=== PATIENT | male | born 1930 | race Caucasian/White ===

== ENCOUNTER 2017-03-24 05:48 | Day surgery (SDC) | payer MEDICARE ==
[2017-03-24 06:34] VITALS: BP 139/88; PULSE 65; RESP 16; TEMP 97.3; O2SAT 94
[2017-03-24] MEDS ORDERED: LIDOCAINE HCL 1% 20 ML VIAL SUBCUT ONE (06:44)
[2017-03-24] MEDS ORDERED: FENTANYL 100 MCG/2 ML VIAL IV PRN (06:46)
[2017-03-24] MEDS ORDERED: ONDANSETRON HCL 4 MG/2 ML VIAL IV PRN (06:46)
[2017-03-24] MEDS ORDERED: LACTATED RINGERS 1,000 ML IV SCH ×2 (07:00)
[2017-03-24] MEDS ORDERED: MIDAZOLAM HCL 2 MG/2 ML VIAL ONE (07:02)
[2017-03-24] MEDS ORDERED: KETAMINE HCL 500 MG/10 ML VIAL ONE (07:03)
[2017-03-24] MEDS ORDERED: SUCCINYLCHOLINE CHLORIDE 200 MG/10 ML VIAL ONE (07:12)
[2017-03-24] MEDS ORDERED: BUPIVACAINE/EPI 0.25% 1 VIAL VIAL ONE (07:13)
[2017-03-24] MEDS ORDERED: BUPIVACAINE HCL/PF 0.25% 10 ML VIAL INJ ONE (07:26)
--- NOTE | 2017-03-26 15:12 | PREOPERATIVE H&P ---
History of Present Illness (Lloyd Cole M.D.; 03/15/2017 2:34 PM) The patient is a 86 year old male who presents for evaluation of a hernia. The onset of the hernia has been acute and has been occurring in a persistent pattern for 5 days. The course has been constant. The patient denies discomfort from the hernia. There is 1 hernia. The hernia is described as being 3 centimeters in diameter. The hernia is located in the groin. The hernia is worsened by straining. The hernia is reduced by lying down. There has been no associated abdominal pain, colicky pain, constipation, diarrhea or dysuria needs to self cath. already. There have been no previous diagnostic tests. This hernia has never been treated in the past. Allergies (Latrice Mcmahon; 03/15/2017 1:28 PM) Penicillins (Amoxicillin, Augmentin, Unasyn...) Social History (Latrice Mcmahon; 03/15/2017 1:29 PM) Vehicle Driving Yes. Tobacco Use Former smoker. Quit in 2011. Alcohol Use Drinks beer. daily Medication History (Latrice Mcmahon; 03/15/2017 1:30 PM) Atorvastatin Calcium (40MG Tablet, 1 (one) Tablet Oral at bedtime, Taken starting 09/28/2016) Active. Metoprolol Tartrate (25MG Tablet, 1/2 Tablet Oral two times daily, Taken starting 09/28/2016) Active. Ocuvite Adult Formula (Oral daily) Active. Multi Vitamin Mens (once Oral daily) Active. Review of Systems (Lloyd Cole M.D.; 03/15/2017 2:37 PM) General Present- Feeling well. Not Present- Night Sweats, Weight Gain and Weight Loss. Skin Not Present- Bruising, Jaundice and Skin Problems. Respiratory Not Present- Asthma, Cough, Lung Problems, Shortness of Breath and Snoring. Cardiovascular Present- Heart Problems (previous NV and CABG). Not Present- Chest Pain, Decreased Exercise Tolerance and Edema. Gastrointestinal Not Present- Abdominal Mass, Abdominal Pain, Bloating, Constipation, Diarrhea, Difficulty Swallowing, GI Problems, Heartburn, Nausea, Rectal Bleeding, Vomiting and Vomiting Blood. Male Genitourinary Present- Dysuria (Needs to self cath. himself), Kidney Problems (only one functioning kidney.) and Prostatitis. Musculoskeletal Present- Joint Pain and Joint Stiffness. Not Present- Back Pain. Neurological Not Present- Loss of Consciousness, Neurological Problems, Seizures , Stroke, Syncope, Tremor and Weakness. Endocrine Not Present- Diabetes and Thyroid Problems. Hematology Present- Anemia (monoclonal gamopathy.). Not Present- Abnormal Bleeding, DVT, Easy Bruising and Epistaxis. Vitals (Latrice Mcmahon; 03/15/2017 1:34 PM) 03/15/2017 1:31 PM Weight: 133 lb Height: 66in Body Surface Area: 1.68 m Body Mass Index: 21.47 kg/m Pulse: 64 (Regular) Resp.: 16 (Unlabored) BP: 134/80 (Sitting, Left Arm, Standard) Physical Exam (Lloyd Cole M.D.; 03/15/2017 2:42 PM) General Mental Status-Alert. General Appearance-Not Anxious. Chest and Lung Exam Chest and lung exam reveals -Clear. Cardiovascular Cardiovascular examination reveals -RRR, No murmurs present. Abdomen Inspection Inspection of the abdomen reveals - Soft and Non-tender. Male Genitourinary Evaluation of genitourinary system reveals-Hernias(Appears to be a direct left inguinal hernia.). Foreskin-Uncircumcised. Testes - Bilateral-Normal. 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 It is minimally symptomatic but he is concerned it came on so quickly. I agree with repair. He does not want mesh for his repair. I told him my opinion was that the commercials he sees are for law suits and don't represent the true incidence of these complicatiions. He would still like to have this done without mesh which I agreed to. I emphasized the higher recurrance rate. He was okay with this. Medical Decision Making (Lloyd Cole M.D.; 03/15/2017 2:51 PM) Amount/complexity of data to be reviewed: - Order and/or review of lab test(s) - Independent visualization of lab test - Decision to obtain old medical records - Review and summarization of old records Signed by Lloyd Cole M.D. (03/15/2017 2:52 PM) SHAHEED
== END 2017-03-24 08:55 | disposition home or self-care (01) ==
LOC: SDS 05:48
PROVIDERS: ATTEND Surgery
DX: Z53.09 Procedure and treatment not carried out because of other contraindication (principal); K40.90 Unilateral inguinal hernia, without obstruction or gangrene, not specified as recurrent; K21.9 Gastro-esophageal reflux disease without esophagitis; I25.10 Atherosclerotic heart disease of native coronary artery without angina pectoris; E78.5 Hyperlipidemia, unspecified; N18.9 Chronic kidney disease, unspecified; Z79.899 Other long term (current) drug therapy
CPT/HCPCS: 93005; 99214; J2250; J3010

== ENCOUNTER 2017-04-14 08:39 | Day surgery (SDC) | payer MEDICARE ==
[~2017-04-14 08:39] MED LIST: ACETAMINOPHEN 1,000 MG/100 ML VIAL IV SCH; FAMOTIDINE IN SALINE, ISO-OSM 20 MG/50 ML PIGGYBACK IV SCH; LIDOCAINE HCL 1% 20 ML VIAL SUBCUT PRN
[2017-04-14] MEDS ORDERED: LACTATED RINGERS 1,000 ML IV SCH ×5 (09:00→11:00)
[2017-04-14] MEDS ORDERED: NORFLURANE/HFC 245FA 1 APPLIC CAN TOPICAL ONE (09:22)
[2017-04-14] MEDS ORDERED: BUPIVACAINE HCL/PF 0.25% 10 ML VIAL INJ ONE (10:06)
[2017-04-14] MEDS ORDERED: ETOMIDATE 40 MG/20 ML VIAL IV ONE (10:10)
[2017-04-14] MEDS ORDERED: FENTANYL 100 MCG/2 ML VIAL ONE (10:10)
[2017-04-14] MEDS ORDERED: MORPHINE SULFATE 10 MG/ML SYR IV PRN ×2 (10:36→10:38)
[2017-04-14] MEDS ORDERED: FENTANYL 100 MCG/2 ML VIAL IV PRN ×2 (10:36→10:38)
[2017-04-14] MEDS ORDERED: LIDOCAINE HCL 1% 20 ML VIAL SUBCUT PRN (10:38)
[2017-04-14] MEDS ORDERED: FAMOTIDINE IN SALINE, ISO-OSM 20 MG/50 ML PIGGYBACK IV SCH (10:38)
[2017-04-14] MEDS ORDERED: ACETAMINOPHEN 1,000 MG/100 ML VIAL IV SCH (10:38)
[2017-04-14] MEDS ORDERED: HEMOSTATIC MATRIX 5 ML SYR MISC ONE (11:08)
[2017-04-14 11:33] VITALS: TEMP 97
--- NOTE | 2017-04-14 11:34 | PROCEDURE NOTE: Gen Surgery ---
General Surgery Procedure Note - Date of Encounter Date of Encounter: 04/14/17 - Brief Operative Note (1) Inguinal hernia of left side without obstruction or gangrene Date of procedure: 04/14/17 Pre-Op Diagnosis: inguinal hernia Post-op diagnosis: same Procedure: Yamileth type hernia repair. Physician: LUCIA POP Estimated Blood Loss: 30 Pathology: sent X-ray taken: No Sponge and instrument counts: correct Condition: stable Disposition: same day Narrative: Pt. with an indirect left inguinal hernia repaired in a Yamileth fashion. Pt. requested that no mesh be used. Ileo inguinal nerve sacrificed.
[2017-04-14 12:05] VITALS: PULSE 55
[2017-04-14 12:15] VITALS: BP 151/87; RESP 14; O2SAT 92
--- NOTE | 2017-04-14 14:28 | OPERATIVE REPORT ---
DATE OF SURGERY: 04/14/17 SURGEON: Lloyd Cole MD ANESTHESIA: Local with IV sedation by Talisha Caraballo CRNA. PREOPERATIVE DIAGNOSIS: Left inguinal hernia. POSTOPERATIVE DIAGNOSIS: Indirect left inguinal hernia with cord lipoma. PROCEDURE PERFORMED: Tissue repair of left inguinal hernia. FINDINGS: The patient had a large cord lipoma which was excised. He had a moderate sized indirect hernia sac. The sac did bulge up the inferior epigastric vessels. The sac was opened and there was no sliding component to the hernia. The sac was not excised and reduced. The patient had requested no mesh be used, so a Coopers ligament type repair was done. SUMMARY: The patient was taken to the operating room and placed in the supine position. His left inguinal region was shaved and then prepped with a ChloraPrep solution. Time out was called and the correct patient, correct preoperative medications and correct procedure were verified. Once 3 minutes time had elapsed for the prep to dry, the area was draped. A 6-cm incision was then marked out. Local in the form of 0.25% Marcaine without epinephrine was infiltrated and the skin was sharply incised. Deeper dissection was done with the cautery. Dissection was carried down to the external oblique aponeurosis. The external oblique aponeurosis was opened up through the external ring. The inferior and superior flaps of the external oblique were then grasped and the ilioinguinal nerve was sacrificed. The cord was then circumferentially controlled near the pubic tubercle. The indirect sac was dissected free from the cord and opened. It was confirmed there was no sliding component so the sac was sewn with 3-0 Vicryl and reduced. The cord lipoma was dissected free and clamped at the base and amputated. It was over sewn with a 3-0 Vicryl. Next a relaxing incision was made in the internal oblique above the area of the pubic tubercle. The internal oblique was initially sewn to the Coopers ligament and then near the iliac vein transitioned to the inguinal ligament. A single suture was placed laterally to the conjoint tendon to the inguinal ligament. This gave a tight closure on the cord the size of my small finger. Hemostasis was then checked and areas of bleeding were controlled with a cautery. FloSeal was placed in the region of the repair, and then the external oblique aponeurosis was closed with running 3-0 Vicryl. Sub.q was closed with interrupted 3-0 Vicryl and the skin was closed with running subcuticular 4-0 Monocryl. Steri-Strips were applied, anesthesia was reversed and the patient was taken from the operating room to the recovery room. SHAHEED
--- NOTE | 2017-04-27 17:28 | PREOPERATIVE H&P ---
History of Present Illness (Lloyd Cole M.D.; 03/15/2017 2:34 PM) The patient is a 86 year old male who presents for evaluation of a hernia. The onset of the hernia has been acute and has been occurring in a persistent pattern for 5 days . The course has been constant . The patient denies discomfort from the hernia . There is/are 1 hernia . The hernia is described as being 3 centimeter(s) in diameter. The hernia is located in the groin . The hernia is worsened by straining . The hernia is reduced by lying down . There has been no associated abdominal pain, colicky pain, constipation, diarrhea or dysuria (needs to self cath. already.) . There have been no previous diagnostic tests . This hernia has never been treated in the past . Allergies (Latrice Mcmahon; 03/15/2017 1:28 PM) Penicillins (Amoxicillin, Augmentin, Unasyn...) Social History (Latrice Mcmahon; 03/15/2017 1:29 PM) Vehicle Driving Yes. Tobacco Use Former smoker. Quit in 2011. Alcohol Use Drinks beer. daily Medication History (Latrice Mcmahon; 03/15/2017 1:30 PM) Atorvastatin Calcium (40MG Tablet, 1 (one) Tablet Oral at bedtime, Taken starting 09/28/2016) Active. Metoprolol Tartrate (25MG Tablet, 1/2 Tablet Oral two times daily, Taken starting 09/28/2016) Active. Ocuvite Adult Formula (Oral daily) Active. Multi Vitamin Mens (once Oral daily) Active. Review of Systems (Lloyd Cole M.D.; 03/15/2017 2:37 PM) General Present- Feeling well. Not Present- Night Sweats, Weight Gain and Weight Loss. Skin Not Present- Bruising, Jaundice and Skin Problems. Respiratory Not Present- Asthma, Cough, Lung Problems, Shortness of Breath and Snoring. Cardiovascular Present- Heart Problems (previous [place] and CABG). Not Present- Chest Pain, Decreased Exercise Tolerance and Edema. Gastrointestinal Not Present- Abdominal Mass, Abdominal Pain, Bloating, Constipation, Diarrhea, Difficulty Swallowing, GI Problems, Heartburn, Nausea, Rectal Bleeding, Vomiting and Vomiting Blood. Male Genitourinary Present- Dysuria (Needs to self cath. himself), Kidney Problems (only one functioning kidney.) and Prostatitis. Musculoskeletal Present- Joint Pain and Joint Stiffness. Not Present- Back Pain. Neurological Not Present- Loss of Consciousness, Neurological Problems, Seizures , Stroke, Syncope, Tremor and Weakness. Endocrine Not Present- Diabetes and Thyroid Problems. Hematology Present- Anemia (monoclonal gamopathy.). Not Present- Abnormal Bleeding, DVT, Easy Bruising and Epistaxis. Vitals (Latrice Mcmahon; 03/15/2017 1:34 PM) 03/15/2017 1:31 PM Weight: 133 lb Height: 66in Body Surface Area: 1.68 m Body Mass Index: 21.47 kg/m Pulse: 64 (Regular) Resp.: 16 (Unlabored) BP: 134/80 (Sitting, Left Arm, Standard) Physical Exam (Lloyd Cole M.D.; 03/15/2017 2:42 PM) General Mental Status-Alert. General Appearance-Not Anxious. Chest and Lung Exam Chest and lung exam reveals -Clear. Cardiovascular Cardiovascular examination reveals -RRR, No murmurs present. Abdomen Inspection Inspection of the abdomen reveals - Soft and Non-tender. Male Genitourinary Evaluation of genitourinary system reveals-Hernias(Appears to be a direct left inguinal hernia.). Foreskin-Uncircumcised. Testes - Bilateral-Normal. 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 It is minimally symptomatic but he is concerned it came on so quickly. I agree with repair. He does not want mesh for his repair. I told him my opinion was that the commercials he sees are for law suits and don't represent the true incidence of these complicatiions. He would still like to have this done without mesh which I agreed to. I emphasized the higher recurrance rate. He was okay with this. Medical Decision Making (Lloyd Cole M.D.; 03/15/2017 2:51 PM) Amount/complexity of data to be reviewed: - Order and/or review of lab test(s) - Independent visualization of lab test - Decision to obtain old medical records - Review and summarization of old records Signed by Lloyd Cole M.D. (03/15/2017 2:52 PM) SHAHEED
== END 2017-04-14 12:45 | disposition home or self-care (01) ==
LOC: SDS 08:39
PROVIDERS: ATTEND Surgery
DX: K40.20 Bilateral inguinal hernia, without obstruction or gangrene, not specified as recurrent (principal); I25.10 Atherosclerotic heart disease of native coronary artery without angina pectoris; N17.9 Acute kidney failure, unspecified; Z95.1 Presence of aortocoronary bypass graft; Z79.899 Other long term (current) drug therapy
CPT/HCPCS: 49505; 88304; J3010